=== PATIENT | female | born 1965 | race Caucasian/White ===

== ENCOUNTER 2023-06-24 05:41 | Inpatient (IN) | payer BC ==
[2023-06-24 06:09] LABS: #Basophils 0.1 thou/uL (0.0-0.2); #Eosinphils 0.1 thou/uL (0.0-0.7); #Monocytes 0.5 thou/uL (0.11-0.59); #Neutrophils 11.7 thou/uL (1.40-6.50); %Basophils 0.4 % (0.0-1.0); %Eosinophils 0.7 % (0.0-10.0); %Lymphocytes 8.6 % (21.0-51.0); %Monocytes 3.9 % (0.0-10.0); %Neutrophils 86.2 % (42.0-75.0); Hematocrit 45.4 % (36.0-47.0); Hemoglobin 14.7 g/dL (12.0-16.0); Mean Corpuscular HGB CONC 32.4 g/dL (32.0-36.0); Mean Corpuscular Hemoglobin 30.9 pg (27.0-31.0); Mean Corpuscular Volume 95.4 fl (78.0-98.0); Mean Platelet Volume 9.4 fL (7.4-10.4); Platelet Count 340 10x3/uL (130-400); RBC Distribution Width 13.5 % (11.5-14.5); Red Blood Cell (RBC) Count 4.76 mill/uL (4.20-5.40); White Blood Cell (WBC) Count 13.5 10x3/uL (4.8-10.8)
[2023-06-24 06:36] LABS: ALT (SGPT) 45 U/L (8-55); AST (SGOT) 30 U/L (5-34); Albumin 4.3 g/dL (3.5-5.0); Alkaline Phosphatase 60 U/L (40-110); Anion Gap 17 mmol/L (10-20); BUN (Urea Nitrogen) 9 mg/dL (9.8-20.1); Bilirubin, Total 0.4 mg/dL (0.2-1.2); Calc. Creatinine Clearance 0 mL/min (70-130); Calcium 9.8 mg/dL (7.8-10.44); Carbon Dioxide 27 mmol/L (22-29); Chloride 102 mmol/L (98-107); Estimated GFR 76; Globulin 3.4 g/dL (2.4-3.5); Glucose 130 mg/dL (70-105); Lipase 18 U/L (8-78); Potassium 3.8 mmol/L (3.5-5.1); Protein, Total 7.7 g/dL (6.0-8.3); Sodium 142 mmol/L (136-145)
[2023-06-24] MEDS ORDERED: Ketorolac Tromethamine 30 MG/ML VIAL ONE (06:44)
[2023-06-24] MEDS ORDERED: Magnesium 2 GM/50 ML BAG (IN WATER) ONE (06:44)
[2023-06-24] MEDS ORDERED: Ondansetron PF 4 MG/2 ML Vial ONE (06:44)
[2023-06-24 06:53] LABS: Bacteria/HPF None Seen HPF (None Seen); Bilirubin Negative (Negative); Blood, Urine Negative (Negative); CAUTI Indications for Culture Pelvic or flank pain; Clarity Clear (Clear); Glucose, Urine (Dipstick) Normal (Negative); Ketone, Urine Negative (Negative); Leukocyte 75 Leu/uL (Negative); Nitrite Negative (Negative); Protein, Urine (Dipstick) 30 mg/dL (Neg-Trace); RBC/HPF 0-3 HPF (0-3); Specific Gravity, Urine 1.025 (1.002-1.036); Squamous Epithelial 0-3 HPF (0-3); Urobilinogen Normal mg/dL (Less than 2); pH, Urine 5.5 (5.0-9.0)
[2023-06-24 06:54] LABS: Urine Culture Reflex No No
[2023-06-24] MEDS ORDERED: Iopamidol-370 76% 500 ML MDV (1 ML CHARGE) ONE (08:59)
[2023-06-24] MEDS ORDERED: Morphine 4 MG/ML VIAL ONE (09:28)
[2023-06-24] MEDS ORDERED: Ondansetron ODT 4 MG TAB PO PRN (10:42)
[2023-06-24] MEDS ORDERED: Ondansetron PF 4 MG/2 ML Vial IVP PRN (10:42)
[2023-06-24] MEDS ORDERED: Electrolyte Replacement Protocol 1 EACH FS SCH (10:45)
[2023-06-24] MEDS ORDERED: Morphine 2 MG/ML VIAL SLOW IVP PRN (10:46)
[2023-06-24 11:17] VITALS: BMI 27.3
[2023-06-24 11:32] LABS: ALT (SGPT) 41 U/L (8-55); AST (SGOT) 26 U/L (5-34); Albumin 3.7 g/dL (3.5-5.0); Alkaline Phosphatase 52 U/L (40-110); Anion Gap 14 mmol/L (10-20); BUN (Urea Nitrogen) 7 mg/dL (9.8-20.1); Bilirubin, Total 0.4 mg/dL (0.2-1.2); Calc. Creatinine Clearance 116 mL/min (70-130); Calcium 8.7 mg/dL (7.8-10.44); Carbon Dioxide 26 mmol/L (22-29); Chloride 107 mmol/L (98-107); Estimated GFR 101; Globulin 2.9 g/dL (2.4-3.5); Glucose 100 mg/dL (70-105); Potassium 3.7 mmol/L (3.5-5.1); Protein, Total 6.6 g/dL (6.0-8.3); Sodium 143 mmol/L (136-145)
[2023-06-24] MEDS: Sodium Chloride 0.9% 1,000 ML IV SCH ×2 (11:39→17:47)
[2023-06-24] MEDS ORDERED: Promethazine HCl 12.5 MG in Sodium Chloride 0.9% 50 ML IVPB PRN (12:10)
[2023-06-25] MEDS: Melatonin 3 MG TAB PO PRN (00:56)
[2023-06-25] MEDS: Sodium Chloride 0.9% 1,000 ML IV SCH ×4 (04:17→20:58)
[2023-06-25 06:08] LABS: #Eosinphils 0.2 thou/uL (0.0-0.7); #Monocytes 0.6 thou/uL (0.11-0.59); #Neutrophils 4.5 thou/uL (1.40-6.50); %Basophils 0.3 % (0.0-1.0); %Lymphocytes 19.8 % (21.0-51.0); %Monocytes 9.4 % (0.0-10.0); %Neutrophils 67.3 % (42.0-75.0); Mean Corpuscular HGB CONC 32.4 g/dL (32.0-36.0); Mean Corpuscular Hemoglobin 30.8 pg (27.0-31.0); Mean Corpuscular Volume 94.9 fl (78.0-98.0); Mean Platelet Volume 9.9 fL (7.4-10.4); Platelet Count 275 10x3/uL (130-400); RBC Distribution Width 13.6 % (11.5-14.5); White Blood Cell (WBC) Count 6.6 10x3/uL (4.8-10.8)
[2023-06-25 06:39] LABS: Magnesium 2.1 mg/dL (1.6-2.6)
[2023-06-25] MEDS ORDERED: Ondansetron PF 4 MG/2 ML Vial IVP PRN (09:49)
[2023-06-25] MEDS ORDERED: Polyethylene Glycol 3350 17 GM Packet PO SCH (14:45)
[2023-06-25] MEDS ORDERED: Ketorolac Tromethamine 60 MG/2 ML VIAL IM SCH (16:00)
[2023-06-25] MEDS ORDERED: Ketorolac Tromethamine 30 MG/ML VIAL IM SCH (16:00)
[2023-06-25] MEDS: Ketorolac Tromethamine 30 MG/ML VIAL IVP SCH (20:57)
[2023-06-26 06:34] LABS: #Eosinphils 0.2 thou/uL (0.0-0.7); #Monocytes 0.5 thou/uL (0.11-0.59); #Neutrophils 2.7 thou/uL (1.40-6.50); %Basophils 0.4 % (0.0-1.0); %Eosinophils 4.3 % (0.0-10.0); %Lymphocytes 33.6 % (21.0-51.0); %Monocytes 8.8 % (0.0-10.0); %Neutrophils 52.7 % (42.0-75.0); Hematocrit 41.3 % (36.0-47.0); Hemoglobin 13.2 g/dL (12.0-16.0); Mean Corpuscular Hemoglobin 30.7 pg (27.0-31.0); Mean Platelet Volume 9.9 fL (7.4-10.4); Platelet Count 297 10x3/uL (130-400); RBC Distribution Width 13.3 % (11.5-14.5); White Blood Cell (WBC) Count 5.1 10x3/uL (4.8-10.8)
[2023-06-26 07:44] LABS: Anion Gap 14 mmol/L (10-20); BUN (Urea Nitrogen) 4 mg/dL (9.8-20.1); Calc. Creatinine Clearance 131 mL/min (70-130); Calcium 9.1 mg/dL (7.8-10.44); Carbon Dioxide 23 mmol/L (22-29); Chloride 107 mmol/L (98-107); Estimated GFR 104; Glucose 88 mg/dL (70-105); Potassium 3.5 mmol/L (3.5-5.1); Sodium 140 mmol/L (136-145)
[2023-06-26] MEDS: Polyethylene Glycol 3350 17 GM Packet PO SCH (08:50)
[2023-06-26] MEDS: Potassium Chloride 20 MEQ in Premix Bag 1 BAG IVPB SCH ×2 (10:00→13:08)
[2023-06-26] MEDS: Sodium Chloride 0.9% 1,000 ML IV SCH (13:08)
[2023-06-26] MEDS ORDERED: Polyethylene Glycol 3350 17 GM Packet PO PRN (15:13)
[2023-06-26] MEDS: Ketorolac Tromethamine 30 MG/ML VIAL IVP SCH ×2 (20:56→21:36)
[2023-06-26] MEDS: Melatonin 3 MG TAB PO PRN (21:37)
[2023-06-27 04:33] VITALS: TEMP 97.8
[2023-06-27 05:43] LABS: #Eosinphils 0.3 thou/uL (0.0-0.7); #Monocytes 0.5 thou/uL (0.11-0.59); #Neutrophils 3.1 thou/uL (1.40-6.50); %Basophils 0.7 % (0.0-1.0); %Eosinophils 4.6 % (0.0-10.0); %Lymphocytes 32.2 % (21.0-51.0); %Monocytes 8.1 % (0.0-10.0); Hematocrit 38.5 % (36.0-47.0); Hemoglobin 12.6 g/dL (12.0-16.0); Mean Corpuscular HGB CONC 32.7 g/dL (32.0-36.0); Mean Corpuscular Volume 94.6 fl (78.0-98.0); Mean Platelet Volume 9.6 fL (7.4-10.4); Platelet Count 271 10x3/uL (130-400); Red Blood Cell (RBC) Count 4.07 mill/uL (4.20-5.40); White Blood Cell (WBC) Count 5.7 10x3/uL (4.8-10.8)
[2023-06-27 06:09] LABS: Anion Gap 16 mmol/L (10-20); BUN (Urea Nitrogen) 6 mg/dL (9.8-20.1); Calc. Creatinine Clearance 133 mL/min (70-130); Carbon Dioxide 19 mmol/L (22-29); Chloride 107 mmol/L (98-107); Estimated GFR 105; Glucose 89 mg/dL (70-105); Potassium 3.6 mmol/L (3.5-5.1); Sodium 138 mmol/L (136-145)
[2023-06-27 08:37] VITALS: BP 121/73
[2023-06-27] MEDS: Polyethylene Glycol 3350 17 GM Packet PO SCH (09:20)
== END 2023-06-27 10:50 | disposition home or self-care (01) | DRG 390 ==
LOC: ERS 05:41 → SJJU 09:13 → OBSVTOIN 14:55
PROVIDERS: ADMIT Family Medicine; ATTEND Hospitalist
DX: K56.609 Unspecified intestinal obstruction, unspecified as to partial versus complete obstruction (principal); F32.A Depression, unspecified; K59.09 Other constipation; N20.0 Calculus of kidney; F10.90 Alcohol use, unspecified, uncomplicated; Z90.49 Acquired absence of other specified parts of digestive tract; Z98.890 Other specified postprocedural states
CPT/HCPCS: 36415; 74018; 74177; 80048; 80053; 81001; 83690; 83735; 85025; 93005; 93010; 96361; 96374; 96375; J1885; J2270; J2405; J3475; J3480; J7050; Q9967

== ENCOUNTER 2024-06-05 09:44 | Outpatient (CLI) | payer BC | END 2024-06-05 09:45 | disposition home or self-care (01) | LOC: BICMAMMO 09:44 | PROVIDERS: ATTEND Family Medicine | DX: Z12.31 Encounter for screening mammogram for malignant neoplasm of breast (principal) | CPT/HCPCS: 77063; 77067 ==

== ENCOUNTER 2024-06-25 07:08 | Emergency (ER) | payer BC ==
[2024-06-25] MEDS ORDERED: Ketorolac Tromethamine 30 MG (1 mL) VIAL ONE (07:48)
[2024-06-25] MEDS ORDERED: Dexamethasone 4 mg/ml Vial ONE (07:49)
[2024-06-25] MEDS ORDERED: Famotidine 20 MG TAB ONE (07:49)
== END 2024-06-25 08:16 | disposition home or self-care (01) ==
LOC: ERS 07:08
DX: H60.501 Unspecified acute noninfective otitis externa, right ear (principal); L25.9 Unspecified contact dermatitis, unspecified cause
CPT/HCPCS: 96372; 99282; J1100; J1885

== ENCOUNTER 2025-06-05 07:27 | Emergency (ER) | payer BC ==
[2025-06-05] MEDS ORDERED: Acetaminophen 500 MG TAB ONE (08:03)
== END 2025-06-05 09:50 | disposition home or self-care (01) ==
LOC: ERS 07:27
DX: M54.50 Low back pain, unspecified (principal); W19.XXXA Unspecified fall, initial encounter; Y93.01 Activity, walking, marching and hiking; Y92.410 Unspecified street and highway as the place of occurrence of the external cause
CPT/HCPCS: 72100; 72170; 72220; 99283